=== PATIENT | male | born 1940 | race Caucasian/White ===

== ENCOUNTER → 2019-07-23 | Outpatient (CLI) | payer OTHER ==
[~2019-07-23] MED LIST: ASPI-555 PO; CARB-38 PO; CLON1TAB12 PO; EMPA25TA PO; EZET10TA13 PO; FINA5TAB41 PO; LISI40TA4 PO; METF-444 PO; PRIM250T24 PO; TRAM50TA4 PO
[2019-07-23 12:50] LABS: CREATININE 1.1 mg/dL (0.5-1.5)
== END | disposition home or self-care (01) ==
LOC: LAB 11:57
PROVIDERS: ATTEND Internal Medicine Cardiovascular Disease
DX: I73.9 Peripheral vascular disease, unspecified (principal)
CPT/HCPCS: 36415; 82565; 84520

== ENCOUNTER → 2019-07-24 | Outpatient (CLI) | payer OTHER ==
[~2019-07-24] MED LIST changes: +IOHEXOL 350 MG/ML 100ML INFUS..BTL IV ONE; +IOHEXOL-350 50ML VIAL IV ONE
== END | disposition home or self-care (01) ==
LOC: OIH 08:42
PROVIDERS: ATTEND Internal Medicine Cardiovascular Disease
DX: I70.203 Unspecified atherosclerosis of native arteries of extremities, bilateral legs (principal); K86.2 Cyst of pancreas; N28.1 Cyst of kidney, acquired; K57.30 Diverticulosis of large intestine without perforation or abscess without bleeding; M47.816 Spondylosis without myelopathy or radiculopathy, lumbar region; M79.89 Other specified soft tissue disorders; M43.8X6 Other specified deforming dorsopathies, lumbar region
CPT/HCPCS: 75635; Q9967 ×2

== ENCOUNTER 2019-08-08 05:39 | Day surgery (SDC) | payer OTHER ==
[~2019-08-08] VITALS: Ht 162.6 cm; Wt 55.2 kg
[2019-08-08] VITALS (9 sets, daily range): BP systolic 103–146; BP diastolic 58–75
[~2019-08-08 05:39] MED LIST changes: -ASPI-555 PO; +ASPI-556 PO; -IOHEXOL 350 MG/ML 100ML INFUS..BTL IV ONE; -IOHEXOL-350 50ML VIAL IV ONE
--- NOTE | 2019-08-08 05:52 | NUR ---
patient arrived to day patient patient aaox3, respirations unlabored, vital signs stable, denies any pain at this time. hospital routine explained to patient and procedure confirmed, patient verbalized understanding. Addendum: 08/08/19 at 0918 by JHONATAN HENNING RN RN two small,dry abrasions present to outer aspect of left foot
[2019-08-08 06:24] LABS: BASOPHILS % (AUTO) 0.4 % (0.0-5.0); EOSINOPHILS % (AUTO) 5.2 % (0.0-8.0); HEMATOCRIT 35.7 % (42-54); LYMPHOCYTES % (AUTO) 22.2 % (21.0-51.0); MEAN CORPUSCULAR HGB CONC 31.1 g/dL (32.0-36.0); MEAN CORPUSCULAR VOLUME 89.9 fL (79-99); MONOCYTES % (AUTO) 10.1 % (3.0-13.0); NEUTROPHILS % (AUTO) 61.9 % (40.0-77.0); PLATELET COUNT (AUTO) 292 K/uL (130-400); RED BLOOD CELL COUNT(AUTO) 3.97 MIL/uL (4.50-6.20); RED CELL DISTRIBUTION WIDTH 14.3 % (11.0-15.5); WHITE BLOOD COUNT (AUTO) 5.4 K/uL (4.8-10.8)
[2019-08-08 06:28] LABS: APPEARANCE,URINE CLEAR (CLEAR); BILIRUBIN,URINE NEGATIVE (NEGATIVE); COLOR,URINE YELLOW (YELLOW); GLUCOSE, URINE (UA) >=1000 mg/dL (NEGATIVE); KETONES,URINE NEGATIVE (NEGATIVE); LEUKOCYTE ESTERASE ,URINE NEGATIVE (NEGATIVE); NITRATE,URINE NEGATIVE (NEGATIVE); OCCULT BLOOD,URINE NEGATIVE (NEGATIVE); PH,URINE 5.5 (5.0-8.0); PROTEIN,URINE 30 mg/dL (NEGATIVE); UROBILINOGEN,URINE 0.2 mg/dL (0.2-1.0)
[2019-08-08 06:35] LABS: BACTERIA,URINE Rare /HPF (None Seen); RBC,URINE 0-1 /HPF (0-1); SQUAMOUS EPITHELIAL CELL,UR Rare /HPF (0-2); WBC,URINE 0-1 /HPF (0-1)
[2019-08-08 06:37] LABS: CREATININE 1.2 mg/dL (0.5-1.5)
[2019-08-08 06:39] LABS: INR 0.95 (0.85-1.15); PARTIAL THROMBOPLASTIN TIME 31.5 SEC (26.3-35.5); PROTHROMBIN TIME 10.3 SEC (9.6-11.6)
[2019-08-08] MEDS ORDERED: FENTANYL CITRATE PF 50 MCG/1 ML 2ML VIAL ONE (07:19)
[2019-08-08] MEDS ORDERED: IODIXANOL 320 MG/ML 100 ML VIAL ONE (07:19)
[2019-08-08] MEDS ORDERED: HEPARIN SODIUM 1000UNIT/ML 10ML VIAL ONE (07:19)
[2019-08-08] MEDS ORDERED: MIDAZOLAM HCL 1 MG/ML 2ML VIAL ONE (07:19)
[2019-08-08] MEDS ORDERED: NITROGLYCERIN 2 MG/VIAL VIAL IV ONE (07:19)
[2019-08-08] MEDS ORDERED: LIDOCAINE HCL 2% 20ML ONE (07:20)
--- NOTE | 2019-08-08 07:25 | NUR ---
patient transferred to [employer] products s[facility] via bed by karine hill.
[2019-08-08] MEDS ORDERED: SODIUM CHLORIDE 0.9% 1000ML 1,000 ML IV ONE (07:35)
[2019-08-08] MEDS ORDERED: CLOPIDOGREL BISULFATE 300 MG TAB ONE (08:49)
[2019-08-08] MEDS ORDERED: HYDRALAZINE HCL 20 MG/ML VIAL ONE (10:23)
--- NOTE | 2019-08-08 11:15 | NUR ---
PATIENT RETURNED TO DAY PATIENT VIA BED BY WATSON KEN . PATIENT AAOX3, RESPIRATIONS UNLABORED, VITAL SIGNS STABLE, DENIES ANY PAIN AT THIS TIME. DRESSING TO RIGHT GROIN AND LEFT GROIN ARE DRY/INTACT. AREA SOFT/NONTENDER.
--- NOTE | 2019-08-08 13:05 | NUR ---
Received report from Aura Giron RN , pt stable, bilateral groin slightly swollen but soft. Will cont to monitor pt
--- NOTE | 2019-08-08 13:08 | NUR ---
REPORT HANDOFF REPORT GIVEN TO ALISSA CRUZ RN AT BEDSIDE USING SBAR, FEMORAL SITES CHECKED. PATIENT AAOX3, RESPIRATIONS UNLABORED, VITAL SIGNS STABLE.
[2019-08-09] MEDS ORDERED: SODIUM CHLORIDE 0.9% 500ML 500 ML IV SCH (05:00)
== END 2019-08-08 15:28 | disposition home or self-care (01) ==
LOC: DAH 05:39
PROVIDERS: ATTEND Internal Medicine Cardiovascular Disease
DX: I70.202 Unspecified atherosclerosis of native arteries of extremities, left leg (principal); I45.10 Unspecified right bundle-branch block; I10 Essential (primary) hypertension; E11.9 Type 2 diabetes mellitus without complications; Z87.891 Personal history of nicotine dependence; N40.0 Benign prostatic hyperplasia without lower urinary tract symptoms; Z96.641 Presence of right artificial hip joint; Z79.01 Long term (current) use of anticoagulants
CPT/HCPCS: 36415; 37225; 37230; 71045; 75716; 80048; 81001; 82948 ×2; 85025; 85347 ×2; 85610; 85730; 93005; A4215; A4216; A4221; A4222; A4223 ×3; A4606; A4663; C1725; C1760 ×3; C1769 ×2; C1874; C1884; C1887; C1894 ×3; C2623; J0360; J1644 ×4; J2250; J3010; J3490 ×2; J7030; Q9967; 75710; 99156; 99157